=== PATIENT | female | born 1950 | race Two or more races ===

== ENCOUNTER → 2024-07-23 | Emergency (ER) | payer OTHER ==
[~2024-07-23] VITALS: Ht 157.5 cm; Wt 56.7 kg
[~2024-07-23] MED LIST: KETOROLAC TROMETHAMINE 30 MG VIAL IV ONE; KETOROLAC TROMETHAMINE 30 MG VIAL ONE; MEPERIDINE HCL/PF 25 MG/ML VIAL IV ONE; ONDANSETRON HCL 2 MG/ML VIAL IV STA; ONDANSETRON HCL 2 MG/ML VIAL ONE; SYNTHROID50 MCG PO
== END | disposition home or self-care (01) ==
LOC: ER 16:13
DX: G43.909 Migraine, unspecified, not intractable, without status migrainosus (principal)
CPT/HCPCS: 70450; 71046; 99284; J1885; J2405; J3490